=== PATIENT | male | born 1955 | race Two or more races ===

== ENCOUNTER 2021-03-22 06:35 | Day surgery (SDC) | payer OTHER ==
[~2021-03-22 06:35] MED LIST: DAILY MULTIPLE1 EAC2 PO
== END 2021-03-22 17:05 | disposition home or self-care (01) ==
LOC: CIR.AMB 06:35
PROVIDERS: ATTEND Orthopaedic Surgery Hand Surgery
DX: M19.031 Primary osteoarthritis, right wrist (principal); Z20.822 Contact with and (suspected) exposure to COVID-19
CPT/HCPCS: 25825; 25210; 64782; C1776

== ENCOUNTER 2025-01-22 14:03 | Outpatient (CLI) | payer OTHER | END 2025-01-22 14:06 | disposition home or self-care (01) | LOC: RAD 14:03 | PROVIDERS: ATTEND Internal Medicine Rheumatology | DX: M75.81 Other shoulder lesions, right shoulder (principal) ==